=== PATIENT | female | born 1940 | race Caucasian/White ===

== ENCOUNTER → 2017-06-09 | Outpatient (CLI) | payer OTHER ==
[~2017-06-09] MED LIST: ATIVAN0.5 MG PO; CALCIUM OYSTER500 MG PO; CENTRUM SILVER1 EAC4 PO; FISH OIL 1,0001 EAC5 PO; FISH OIL 1,001000 M2 PO; Hydrocodone-Apap 5-325 Tablet PO; LEVOTHYROXINE0.05 MG PO; MULTIVITAMINS PO; PRESERVISION T1 EACH PO; PRILOSEC 20 MG20 MG PO; REMERON15 MG PO; VITAMIN D1000 UNI1 PO; VITAMIN D400 UNI1 PO
== END ==
LOC: RAD 01:22
DX: Z12.31 Encounter for screening mammogram for malignant neoplasm of breast (principal)

== ENCOUNTER → 2018-06-30 | Outpatient (CLI) | payer OTHER | LOC: RAD 07:17 | DX: Z12.31 Encounter for screening mammogram for malignant neoplasm of breast (principal) ==

== ENCOUNTER → 2019-07-21 | Outpatient (CLI) | payer OTHER | LOC: RAD 01:09 | DX: Z12.31 Encounter for screening mammogram for malignant neoplasm of breast (principal) ==

== ENCOUNTER → 2019-08-09 | Outpatient (CLI) | payer OTHER | LOC: ULTRA 08-01 14:59 | DX: N63.10 Unspecified lump in the right breast, unspecified quadrant (principal); R92.2 Inconclusive mammogram ==

== ENCOUNTER → 2021-07-09 | Outpatient (CLI) | payer OTHER | LOC: BC 10:06 | PROVIDERS: ATTEND Family Medicine | DX: Z12.31 Encounter for screening mammogram for malignant neoplasm of breast (principal) ==